=== PATIENT | male | born 1950 | race Caucasian/White ===

== ENCOUNTER 2024-11-30 03:25 | Observation (INO) ==
[2024-11-30 06:05] LABS: Basophils # (Auto) 0.07 K/mcL (0.00-0.30); Basophils % (Auto) 0.6 % (0.0-2.0); Eosinophils # (Auto) 0.13 K/mcL (0.00-0.70); Eosinophils % (Auto) 1.1 % (0.0-7.0); Hematocrit 47.3 % (40.1-51.0); Lymphocytes # (Auto) 2.15 K/mcL (1.50-4.80); Lymphocytes % (Auto) 18.6 % (15.5-49.0); Mean Cell Volume 88.4 fL (80.0-100.0); Mean Corpuscular HGB Conc 31.7 g/dL (31.0-36.0); Mean Platelet Volume 11.2 fL (8.8-12.5); Monocytes # (Auto) 0.93 K/mcL (0.10-0.90); Neutrophils % (Auto) 71.6 % (38.0-78.0); Platelet Count 232 K/mcL (140-440); RBC 5.35 M/mcL (4.63-6.08); Red Cell Distribution Width 14.4 % (11.5-14.5); WBC 11.6 K/mcL (4.5-11.0)
[2024-11-30 06:16] LABS: ALT/SGPT 12 U/L (<40); AST/SGOT 26 U/L (<40); Albumin 3.9 gm/dL (3.2-5.2); Albumin/Globulin Ratio 1.1 (1.0-2.3); Alkaline Phosphatase 94 U/L (39-117); Bilirubin,Total 0.6 mg/dL (0.1-1.0); Blood Urea Nitrogen 21 mg/dL (8-23); Calcium 9.6 mg/dL (8.6-10.4); Carbon Dioxide 17 mmol/L (22-30); Chloride 104 mmol/L (96-108); Globulin 3.4 gm/dL (2.2-3.7); Glomerular Filtration Rate 53; Glucose 106 mg/dL (70-105); Potassium 4.3 mmol/L (3.3-5.1); Sodium 135 mmol/L (133-145)
[2024-11-30] MEDS: DESMOPRESSIN ACETATE IV ONE (06:18)
[2024-11-30] MEDS: SODIUM CHLORIDE 0.9% IV ONE (06:18)
[2024-11-30 06:31] LABS: Partial Thromboplastin Time 28.4 sec (20.0-37.0); Prothrombin Time 13.6 sec (11.9-14.5)
[2024-11-30] MEDS ORDERED: ONDANSETRON 4 MG/2 ML VIAL IV PRN (10:51)
[2024-11-30] MEDS ORDERED: SENNOSIDES 1 TABLET PO PRN (10:51)
[2024-11-30] MEDS: LACTATED RINGERS 1,000 ML IV SCH (11:01)
[2024-11-30] MEDS: LIDOCAINE 2% URO-JET 10 ML JEL.PF.APP UR ONE (12:42)
[2024-11-30] MEDS: 0.9 % SODIUM CHLORIDE 10 ML SYRINGE IV SCH (13:15)
[2024-11-30] MEDS: POLYETHYLENE GLYCOL 3350 17 GM PACKET PO PRN (15:07)
[2024-11-30 16:50] LABS: Basophils # (Auto) 0.07 K/mcL (0.00-0.30); Basophils % (Auto) 0.6 % (0.0-2.0); Eosinophils # (Auto) 0.26 K/mcL (0.00-0.70); Eosinophils % (Auto) 2.4 % (0.0-7.0); Hematocrit 43.1 % (40.1-51.0); Hemoglobin 13.8 g/dL (13.7-17.5); Lymphocytes # (Auto) 2.75 K/mcL (1.50-4.80); Lymphocytes % (Auto) 25.2 % (15.5-49.0); Mean Cell Volume 88.7 fL (80.0-100.0); Mean Platelet Volume 11.1 fL (8.8-12.5); Monocytes # (Auto) 1.27 K/mcL (0.10-0.90); Monocytes % (Auto) 11.6 % (1.0-12.0); Platelet Count 206 K/mcL (140-440); RBC 4.86 M/mcL (4.63-6.08); Red Cell Distribution Width 14.7 % (11.5-14.5); WBC 10.9 K/mcL (4.5-11.0)
[2024-11-30] MEDS: CARVEDILOL 12.5 MG TABLET PO SCH (17:55)
[2024-11-30] MEDS: Sacubitril-Valsartan [Entresto] 24-26 mg tablet PO SCH (17:55)
[2024-11-30] MEDS: TAMSULOSIN 0.4 MG CAPSULE PO SCH (20:20)
[2024-11-30] MEDS: SULFAMETHOXAZOLE/TRIMETHOPRIM 1 TABLET PO SCH (20:20)
[2024-11-30] MEDS: ATORVASTATIN 40 MG TABLET PO SCH (20:20)
[2024-11-30] MEDS: ACETAMINOPHEN 325 MG TABLET PO PRN (20:22)
[2024-12-01] MEDS: traMADol 50 MG TABLET PO ONE ×2 (01:21→03:03)
[2024-12-01 06:12] LABS: Basophils # (Auto) 0.08 K/mcL (0.00-0.30); Basophils % (Auto) 0.9 % (0.0-2.0); Eosinophils # (Auto) 0.33 K/mcL (0.00-0.70); Eosinophils % (Auto) 3.5 % (0.0-7.0); Hematocrit 40.9 % (40.1-51.0); Hemoglobin 12.8 g/dL (13.7-17.5); Lymphocytes # (Auto) 2.77 K/mcL (1.50-4.80); Lymphocytes % (Auto) 29.5 % (15.5-49.0); Mean Cell Volume 90.7 fL (80.0-100.0); Mean Corpuscular HGB Conc 31.3 g/dL (31.0-36.0); Mean Platelet Volume 11.1 fL (8.8-12.5); Monocytes # (Auto) 0.88 K/mcL (0.10-0.90); Monocytes % (Auto) 9.4 % (1.0-12.0); Neutrophils % (Auto) 56.5 % (38.0-78.0); Platelet Count 181 K/mcL (140-440); RBC 4.51 M/mcL (4.63-6.08); Red Cell Distribution Width 14.5 % (11.5-14.5); WBC 9.4 K/mcL (4.5-11.0)
[2024-12-01 06:34] LABS: Blood Urea Nitrogen 16 mg/dL (8-23); Calcium 8.6 mg/dL (8.6-10.4); Carbon Dioxide 20 mmol/L (22-30); Chloride 104 mmol/L (96-108); Glomerular Filtration Rate 73; Glucose 92 mg/dL (70-105); Potassium 4.1 mmol/L (3.3-5.1); Sodium 135 mmol/L (133-145)
[2024-12-01] MEDS ORDERED: KETAMINE 50 MG/ML ML ONE (08:18)
[2024-12-01] MEDS ORDERED: PROPOFOL 200 MG/20 ML VIAL IV ONE ×2 (08:18→09:46)
[2024-12-01] MEDS ORDERED: DEXAMETHASONE 10 MG/ML VIAL ONE (08:23)
[2024-12-01] MEDS ORDERED: ONDANSETRON 4 MG/2 ML VIAL ONE (08:23)
[2024-12-01] MEDS ORDERED: LIDOCAINE 2% PF 5 ML VIAL ONE (08:23)
[2024-12-01] MEDS ORDERED: ePHEDrine 50 MG/5 ML SYRINGE (ANEST) IV ONE (08:37)
[2024-12-01] MEDS: ceFAZolin 2 GM in DEXTROSE 5% IN WATER 50 ML IV SCH (09:15)
[2024-12-01] MEDS ORDERED: fentaNYL 100 MCG/2 ML VIAL ONE (09:44)
[2024-12-01] MEDS ORDERED: LACTATED RINGERS 250 ML IV PRN (09:50)
[2024-12-01] MEDS ORDERED: NALOXONE HCL 0.4 MG/ML VIAL IV PRN (09:50)
[2024-12-01] MEDS ORDERED: fentaNYL 100 MCG/2 ML VIAL IV PRN (09:50)
[2024-12-01] MEDS ORDERED: MEPERIDINE 25 MG/ML VIAL IV PRN (09:50)
[2024-12-01] MEDS ORDERED: ONDANSETRON 4 MG/2 ML VIAL IV PRN (09:50)
[2024-12-01] MEDS ORDERED: IPRATROPIUM/ALBUTEROL 3 ML AMPUL.NEB NEB PRN (09:50)
[2024-12-01] MEDS ORDERED: diphenhydrAMINE 50 MG/ML VIAL IV PRN (09:50)
[2024-12-01] MEDS: ACETAMINOPHEN 1,000 MG/100 ML BAG IV ONE (10:25)
[2024-12-01] MEDS: traMADol 50 MG TABLET PO PRN (11:11)
[2024-12-01] MEDS: OXYBUTYNIN CHLORIDE 5 MG TABLET PO ONE (11:11)
[2024-12-01] MEDS: LACTATED RINGERS 1,000 ML IV SCH (11:15)
[2024-12-01] MEDS ORDERED: GLUCOSAM CHOND MSM1 C MANG BOR PO SCH (12:00)
[2024-12-01] MEDS: LIDOCAINE 2% URO-JET 10 ML JEL.PF.APP UR ONE (19:29)
[2024-12-02 06:11] LABS: Basophils # (Auto) 0.02 K/mcL (0.00-0.30); Basophils % (Auto) 0.1 % (0.0-2.0); Eosinophils # (Auto) 0.02 K/mcL (0.00-0.70); Eosinophils % (Auto) 0.1 % (0.0-7.0); Hematocrit 40.7 % (40.1-51.0); Lymphocytes % (Auto) 13.3 % (15.5-49.0); Mean Cell Volume 88.7 fL (80.0-100.0); Mean Corpuscular HGB Conc 31.9 g/dL (31.0-36.0); Mean Platelet Volume 10.9 fL (8.8-12.5); Monocytes # (Auto) 1.37 K/mcL (0.10-0.90); Monocytes % (Auto) 7.9 % (1.0-12.0); Neutrophils % (Auto) 78.4 % (38.0-78.0); Platelet Count 194 K/mcL (140-440); RBC 4.59 M/mcL (4.63-6.08); Red Cell Distribution Width 14.3 % (11.5-14.5); WBC 17.3 K/mcL (4.5-11.0)
[2024-12-02 06:39] LABS: Blood Urea Nitrogen 16 mg/dL (8-23); Calcium 8.7 mg/dL (8.6-10.4); Carbon Dioxide 21 mmol/L (22-30); Chloride 101 mmol/L (96-108); Glomerular Filtration Rate 65; Glucose 106 mg/dL (70-105); Potassium 4.3 mmol/L (3.3-5.1); Sodium 132 mmol/L (133-145)
== END 2024-12-02 11:51 | disposition home or self-care (01) ==
LOC: ED 03:25 → ICU 03:25
PROVIDERS: ADMIT Student in an Organized Health Care Education/Training Program; ATTEND Student in an Organized Health Care Education/Training Program